=== PATIENT | male | born 1980 | race Caucasian/White ===

== ENCOUNTER 2016-06-21 09:32 | Emergency (ER) | payer OTHER ==
[2016-06-21 10:03] LABS: BASOPHIL 0.2 % (0-2); EOSINOPHIL 0.7 % (0-5); HCT 44.8 % (42.0-52.0); HGB 16.3 g/dl (13.2-18.0); LYMPHOCYTE 14.7 % (15-48); MCH 31.5 pg (25.0-31.0); MCHC 36.4 g/dL (32.0-36.0); MCV 86.7 fL (78.0-100.0); MONOCYTE 6.5 % (0-12); MPV 8.9 fL (6.0-9.5); NEUTROPHIL 77.9 % (41-80); PLT 174 K/uL (150-400); RBC 5.17 M/uL (4.70-6.00); RDW 12.7 % (11.5-14.0); WBC 8.3 K/uL (4.0-10.5)
[2016-06-21 10:17] LABS: ALBUMIN 4.7 g/dL (3.5-5.0); BILIRUBIN - TOTAL 0.6 mg/dL (0.1-1.0); GLOBULIN (CALCULATION) 2.7 g/dL (2.2-4.2); POTASSIUM 4.2 mmol/L (3.5-5.1); TOTAL PROTEIN 7.4 g/dL (6.4-8.3)
== END 2016-06-21 11:20 | disposition home or self-care (01) ==
LOC: FER 09:32
PROVIDERS: Emergency Medicine
DX: R10.9 Unspecified abdominal pain (principal); I45.10 Unspecified right bundle-branch block
CPT/HCPCS: 36415; 80053; 83690; 84484; 85025; 93005; J2270; J2405

== ENCOUNTER → 2016-07-16 | Day surgery (SDC) | payer OTHER | END | disposition home or self-care (01) | LOC: FAS 09:22 | DX: K81.1 Chronic cholecystitis (principal); M17.9 Osteoarthritis of knee, unspecified; Z88.8 Allergy status to other drugs, medicaments and biological substances; Z79.899 Other long term (current) drug therapy; Z98.890 Other specified postprocedural states | CPT/HCPCS: 74300; 88304; J1170; J2405; J2704; J2710; J3010; Q9962 ==